=== PATIENT | female | born 1965 | race Caucasian/White ===

== ENCOUNTER 2021-04-28 07:04 | Emergency (ER) | payer BC, OTHER ==
[2021-04-28 09:49] LABS: BUN/CREATININE RATIO 15 (0-10)
[2021-04-28 10:18] LABS: HEMOGLOBIN 12.7 gm/dl (12.3-15.3); RED BLOOD COUNT 4.43 M/UL (4.00-5.10); WHITE BLOOD COUNT 11.9 K/UL (4.5-11.0)
[2021-04-28] MEDS ORDERED: ZOFRAN ODT 4 MG4 MG SL (11:23)
[2021-04-28] MEDS ORDERED: PYRIDIUM200 MG PO (11:23)
[2021-04-28] MEDS ORDERED: OMNICEF 300 MG300 MG PO (11:23)
== END 2021-04-28 12:55 | disposition home or self-care (01) ==
LOC: ER1 07:04
PROVIDERS: Physician Assistant Medical
DX: R30.0 Dysuria (principal); E11.9 Type 2 diabetes mellitus without complications; I10 Essential (primary) hypertension
CPT/HCPCS: 80053; 81001; 85025; 85610; 96374; 96375; 99283; J0696; J1885; J2405; J7030

== ENCOUNTER 2021-05-18 05:58 | Emergency (ER) | payer BC, OTHER ==
[~2021-05-18 05:58] MED LIST: OMNICEF 300 MG300 MG PO; PYRIDIUM200 MG PO; ZOFRAN ODT 4 MG4 MG SL
[2021-05-18 07:16] LABS: HEMOGLOBIN 11.9 gm/dl (12.3-15.3); RED BLOOD COUNT 4.08 M/UL (4.00-5.10); WHITE BLOOD COUNT 11.6 K/UL (4.5-11.0)
[2021-05-18 07:41] LABS: BUN/CREATININE RATIO 26 (0-10)
[2021-05-18] MEDS ORDERED: ZOFRAN ODT 4 MG4 MG SL (10:01)
[2021-05-18] MEDS ORDERED: LEVOFLOXACIN750 MG PO (10:01)
[2021-05-18] MEDS ORDERED: PYRIDIUM200 MG PO (10:01)
== END 2021-05-18 11:30 | disposition home or self-care (01) ==
LOC: ER1 05:58
PROVIDERS: Physician Assistant Medical
DX: N30.00 Acute cystitis without hematuria (principal); E11.9 Type 2 diabetes mellitus without complications; I10 Essential (primary) hypertension; Z79.84 Long term (current) use of oral hypoglycemic drugs
CPT/HCPCS: 80053; 81001; 83605; 85025; 87040; 87086; 96374; 96375; 99284; J1956; J2405

== ENCOUNTER 2021-11-01 08:19 | Observation (INO) | payer BC, OTHER ==
[~2021-11-01] VITALS: Ht 157.5 cm; Wt 83.0 kg
[~2021-11-01 08:19] MED LIST changes: +LEVOFLOXACIN750 MG PO
[2021-11-01 09:04] LABS: HEMOGLOBIN 13.9 gm/dl (12.3-15.3); RED BLOOD COUNT 4.77 M/UL (4.00-5.10); WHITE BLOOD COUNT 8.6 K/UL (4.5-11.0)
[2021-11-01 09:25] LABS: BUN/CREATININE RATIO 17 (0-10)
[2021-11-01] MEDS ORDERED: VITAMIN D21250 MCG PO (14:11)
[2021-11-01] MEDS ORDERED: METFORMIN HCL500 M2 PO (14:11)
[2021-11-01] MEDS ORDERED: CRESTOR5 MG PO (14:12)
[2021-11-01] MEDS ORDERED: LISINOPRIL-HCT1 EACH PO (14:12)
[2021-11-01] MEDS ORDERED: ZYRTEC10 MG PO (14:13)
[2021-11-01] MEDS ORDERED: COQ1050 MG PO (14:13)
[2021-11-01] MEDS ORDERED: VITAMIN C100 MG PO (14:13)
[2021-11-01] MEDS ORDERED: ZINC50 M1 PO (14:14)
== END 2021-11-01 17:30 | disposition home or self-care (01) ==
LOC: ER1 08:19 → CDU 13:08
PROVIDERS: Emergency Medicine; ADMIT Surgery
PROC: 0FT44ZZ Resection of Gallbladder, Percutaneous Endoscopic Approach (ICD-10-PCS; principal; 2021-11-01 15:28)
DX: K80.10 Calculus of gallbladder with chronic cholecystitis without obstruction (principal); K66.0 Peritoneal adhesions (postprocedural) (postinfection); K21.9 Gastro-esophageal reflux disease without esophagitis; I10 Essential (primary) hypertension; E11.9 Type 2 diabetes mellitus without complications; E78.5 Hyperlipidemia, unspecified; Z86.16 Personal history of COVID-19; Z79.84 Long term (current) use of oral hypoglycemic drugs; Z79.899 Other long term (current) drug therapy
CPT/HCPCS: 80053; 81001; 82550; 82553; 82962; 83605; 83690; 84484; 85025; 85379; 93005; 96374; 96375; 99285; G0378; J0690; J2001; J2250; J2270; J2405; J2704; J3010; Q9967